=== PATIENT | female | born 1955 | race African-American/Black ===

== ENCOUNTER 2018-12-26 11:38 | Inpatient (IN) ==
[2018-12-26 12:19] LABS: Basophils # 0.1 10*3/uL (0.0-0.2); Basophils % 0.6 % (0.0-0.8); Eosinophils % 0.2 % (0.00-10.9); Hematocrit 39.7 VOL% (35.7-47.0); Hemoglobin 12.7 GM/DL (12.0-16.0); Immature Granulocytes % 0.3 %; Immature Granulocytes Absolute 0.03 #; Lymphocytes % 11.4 % (21.3-54.2); Mean Platelet Volume 12.6 FL (9.6-12.0); Monocytes % 4.5 % (1.7-12.7); Platelet Count 200 T/CUMM (130-400); White Blood Count 8.6 T/CUMM (4-12)
[2018-12-26 12:47] LABS: Alanine Aminotransferase 26 U/L (13-56); Albumin 4.2 G/DL (3.4-5.0); Alkaline Phosphatase 69 U/L (45-117); Aspartate Amino Transferase 21 U/L (0-37); Bilirubin,Total < 0.39 MG/DL (0.2-1.0); Blood Urea Nitrogen 30 MG/DL (7-18); Calcium 10.3 MG/DL (8.5-10.1); Glucose 128 MG/DL (74-106); Osmolality,Calculated 284.5 MOS/KG (273-304); Total Protein 8.7 G/DL (6.4-8.3); Troponin I < 0.015 NG/ML (0.00-0.045)
[2018-12-26] MEDS ORDERED: NITROGLYCERIN SL 0.4 MG TABLET SL PRN (14:11)
[2018-12-26] MEDS ORDERED: ASPIRIN 325 MG TABLET PO STA (14:11)
[2018-12-26 15:30] LABS: Basophils # 0.1 10*3/uL (0.0-0.2); Basophils % 0.5 % (0.0-0.8); Hematocrit 38.8 VOL% (35.7-47.0); Hemoglobin 12.3 GM/DL (12.0-16.0); Immature Granulocytes % 0.4 %; Immature Granulocytes Absolute 0.04 #; Lymphocytes # 1.4 10*3/uL (1.4-4.0); Lymphocytes % 13.4 % (21.3-54.2); Mean Corpuscular HGB Conc 31.7 GM/DL (32-36); Mean Corpuscular Volume 81.2 FL (87-102); Mean Platelet Volume 12.5 FL (9.6-12.0); Monocytes % 4.2 % (1.7-12.7); Neutrophils % 81.5 % (38.7-73.9); Platelet Count 209 T/CUMM (130-400); Red Blood Count 4.78 MC/CUMM (3.8-5.5); Red Cell Distribution Width 15.2 % (9.3-17.3); White Blood Count 10.8 T/CUMM (4-12)
[2018-12-26 15:45] LABS: Calcium 10.8 MG/DL (8.5-10.1); Osmolality,Calculated 288.3 MOS/KG (273-304)
[2018-12-26] MEDS ORDERED: SODIUM CHLORIDE 0.9% 500 ML IV STA (15:55)
[2018-12-26] MEDS ORDERED: ONDANSETRON 4 MG/2 ML VIAL IV PRN (17:38)
[2018-12-26] MEDS: ENOXAPARIN 40 MG/0.4 ML SYRINGE SUBCUT SCH (21:09)
[2018-12-26] MEDS: POTASSIUM CHLORIDE 20 MEQ TABLET PO PRN (21:11)
[2018-12-26] MEDS: SODIUM CHLORIDE 0.9% 1,000 ML IV SCH (21:38)
[2018-12-27 04:46] LABS: Basophils # 0.1 10*3/uL (0.0-0.2); Basophils % 0.6 % (0.0-0.8); Eosinophils # 0.1 10*3/uL (0.0-0.87); Eosinophils % 0.6 % (0.00-10.9); Hematocrit 37.4 VOL% (35.7-47.0); Hemoglobin 11.8 GM/DL (12.0-16.0); Immature Granulocytes % 0.5 %; Immature Granulocytes Absolute 0.04 #; Lymphocytes # 1.8 10*3/uL (1.4-4.0); Lymphocytes % 21.1 % (21.3-54.2); Mean Corpuscular HGB Conc 31.6 GM/DL (32-36); Mean Platelet Volume 12.8 FL (9.6-12.0); Monocytes % 6.6 % (1.7-12.7); Neutrophils % 70.6 % (38.7-73.9); Platelet Count 189 T/CUMM (130-400); Red Blood Count 4.62 MC/CUMM (3.8-5.5); Red Cell Distribution Width 15.4 % (9.3-17.3); White Blood Count 8.6 T/CUMM (4-12)
[2018-12-27 05:14] LABS: Calcium 10.3 MG/DL (8.5-10.1); Osmolality,Calculated 288.1 MOS/KG (273-304); Risk Ratio 2.31; VLDL CHOLESTEROL 13.8 MG/DL
[2018-12-27] MEDS: POTASSIUM CHLORIDE 20 MEQ TABLET PO PRN (06:06)
[2018-12-27] MEDS: LEVOTHYROXINE 100 MCG TABLET PO SCH (06:06)
[2018-12-27] MEDS: SODIUM CHLORIDE 0.9% 1,000 ML IV SCH ×2 (08:47→11:28)
[2018-12-27] MEDS: PANTOPRAZOLE 40 MG TABLET PO SCH (08:51)
[2018-12-27] MEDS ORDERED: cloNIDine 0.1 MG TABLET PO SCH (09:00)
[2018-12-27] MEDS ORDERED: MAGNESIUM SULF RIDER 2 GM in PREMIX 1 EACH IV PRN (11:03)
[2018-12-27] MEDS: ASPIRIN EC 81 MG TABLET PO SCH (13:20)
[2018-12-27] MEDS: methylPREDNISolone SOD SUC 125 MG/2 ML VIAL IV SCH ×2 (13:20→17:50)
[2018-12-27] MEDS: diphenhydrAMINE CAP 25 MG CAPSULE PO SCH ×2 (13:20→17:50)
[2018-12-27] MEDS: FAMOTIDINE 20 MG/2 ML VIAL IV SCH (13:21)
[2018-12-27] MEDS: METOPROLOL TARTRATE 25 MG TABLET PO SCH (20:17)
[2018-12-27] MEDS: ACETAMINOPHEN 325 MG TABLET PO PRN (20:18)
[2018-12-27] MEDS: ENOXAPARIN 40 MG/0.4 ML SYRINGE SUBCUT SCH (20:20)
[2018-12-27] MEDS ORDERED: SIMVASTATIN 10 MG TABLET PO SCH (21:00)
[2018-12-28] MEDS: methylPREDNISolone SOD SUC 125 MG/2 ML VIAL IV SCH ×3 (00:17→13:24)
[2018-12-28] MEDS: diphenhydrAMINE CAP 25 MG CAPSULE PO SCH ×3 (00:19→13:24)
[2018-12-28] MEDS: FAMOTIDINE 20 MG/2 ML VIAL IV SCH ×2 (00:20→13:24)
[2018-12-28] MEDS: SODIUM CHLORIDE 0.9% 1,000 ML IV SCH ×2 (00:29→14:10)
[2018-12-28 05:21] LABS: Hematocrit 40.4 VOL% (35.7-47.0); Hemoglobin 12.5 GM/DL (12.0-16.0); Immature Granulocytes % 0.5 %; Immature Granulocytes Absolute 0.04 #; Lymphocytes # 0.7 10*3/uL (1.4-4.0); Lymphocytes % 8.9 % (21.3-54.2); Mean Corpuscular HGB Conc 30.9 GM/DL (32-36); Mean Corpuscular Volume 81.5 FL (87-102); Mean Platelet Volume 13.9 FL (9.6-12.0); Monocytes % 0.3 % (1.7-12.7); Neutrophils % 90.3 % (38.7-73.9); Platelet Count 186 T/CUMM (130-400); Red Blood Count 4.96 MC/CUMM (3.8-5.5); Red Cell Distribution Width 15.5 % (9.3-17.3); White Blood Count 7.8 T/CUMM (4-12)
[2018-12-28 05:39] LABS: Calcium 10.5 MG/DL (8.5-10.1)
[2018-12-28 05:51] LABS: Hypochromasia 1+; Lymphocytes 8 % (20-55); Platelet Estimate Adequate; Segmented Neutrophils 92 % (50-85); Total Cells Counted 100
[2018-12-28] MEDS ORDERED: DIAZEPAM 5 MG TABLET PO ONE (06:00)
[2018-12-28] MEDS ORDERED: diphenhydrAMINE CAP 25 MG CAPSULE PO ONE (06:00)
[2018-12-28 06:57] LABS: Total Protein (Chem) 7.7 G/DL (6.4-8.3)
[2018-12-28] MEDS: METOPROLOL TARTRATE 25 MG TABLET PO SCH ×2 (08:30→21:31)
[2018-12-28] MEDS: LEVOTHYROXINE 100 MCG TABLET PO SCH (08:30)
[2018-12-28] MEDS: ACETAMINOPHEN 325 MG TABLET PO PRN ×2 (08:30→10:38)
[2018-12-28] MEDS: PANTOPRAZOLE 40 MG TABLET PO SCH (08:31)
[2018-12-28] MEDS: ASPIRIN EC 81 MG TABLET PO SCH (08:31)
[2018-12-28 10:32] LABS: Albumin (SPE) 4.6 G/DL (3.2-5.3); Albumin (SPE) Rel % 59.8 %; Alpha 1 (SPE) 0.2 G/DL (0.1-0.4); Alpha 1 (SPE) Rel % 2.2 %; Alpha 2 (SPE) 0.7 G/DL (0.4-1.0); Alpha 2 (SPE) Rel % 8.9 %; Beta (SPE) 0.8 G/DL (0.5-1.1); Beta (SPE) Rel % 10.8 %; Gamma (SPE) 1.4 G/DL (0.7-1.7); Gamma (SPE) Rel % 18.3 %
[2018-12-28] MEDS ORDERED: ACETAMINOPHEN 325 MG TABLET PO PRN (10:35)
[2018-12-28] MEDS: TRIAMTERENE/HCTZ 37.5-25 MG TABLET PO SCH (13:50)
[2018-12-28] MEDS ORDERED: SIMVASTATIN 40 MG TABLET PO SCH (21:00)
[2018-12-28] MEDS: ENOXAPARIN 40 MG/0.4 ML SYRINGE SUBCUT SCH (21:32)
[2018-12-29 05:56] LABS: Basophils % 0.2 % (0.0-0.8); Hematocrit 36.5 VOL% (35.7-47.0); Hemoglobin 11.5 GM/DL (12.0-16.0); Immature Granulocytes % 0.4 %; Immature Granulocytes Absolute 0.05 #; Lymphocytes # 2.1 10*3/uL (1.4-4.0); Lymphocytes % 17.3 % (21.3-54.2); Mean Corpuscular HGB Conc 31.5 GM/DL (32-36); Mean Corpuscular Volume 81.5 FL (87-102); Mean Platelet Volume 13.7 FL (9.6-12.0); Neutrophils % 76.1 % (38.7-73.9); Platelet Count 169 T/CUMM (130-400); Red Blood Count 4.48 MC/CUMM (3.8-5.5); Red Cell Distribution Width 15.6 % (9.3-17.3); White Blood Count 12.3 T/CUMM (4-12)
[2018-12-29 06:04] LABS: Calcium 10.1 MG/DL (8.5-10.1)
[2018-12-29] MEDS: LEVOTHYROXINE 100 MCG TABLET PO SCH (07:08)
[2018-12-29] MEDS: METOPROLOL TARTRATE 25 MG TABLET PO SCH (08:42)
[2018-12-29] MEDS: PANTOPRAZOLE 40 MG TABLET PO SCH (08:42)
[2018-12-29] MEDS: ASPIRIN EC 81 MG TABLET PO SCH (08:42)
[2018-12-29] MEDS: TRIAMTERENE/HCTZ 37.5-25 MG TABLET PO SCH (08:43)
[2018-12-29 13:00] VITALS: BP 150/70
[2018-12-30 09:45] LABS: Total Protein 24 Hr Ur Result 249 MG/24HR (0-149.1); Total Volume,Urine 2075 ML (400-2000)
[2018-12-30 12:49] LABS: 24 Hr Protein (Bench) 249 MG/24HR (0-149.1)
== END 2018-12-29 12:48 | disposition home or self-care (01) | DRG 313 ==
LOC: N.EDINP 11:38 → N.ED 11:38 → N.TELES 18:13
PROVIDERS: ADMIT Internal Medicine; ATTEND Internal Medicine